=== PATIENT | male | born 1960 | race Caucasian/White ===

== ENCOUNTER 2016-06-14 15:57 | Inpatient (IN) | payer BC, OTHER ==
[2016-06-14] MEDS ORDERED: Sodium Chloride 0.9% 10 ML Syringe FLUSH PRN ×2 (16:04→19:00)
[2016-06-14] MEDS ORDERED: Sodium Chloride 0.9% 2.5 ML Syringe FLUSH PRN ×2 (16:04→19:00)
--- NOTE | 2016-06-14 16:20 | EDM.PDOC ---
ED HPI GENERAL MEDICAL PROBLEM - General Stated Complaint: FALL Time Seen by Provider: 06/14/16 16:06 Source of Information: Reports: Patient History Limitations: Reports: No limitations - History of Present Illness INITIAL COMMENTS - FREE TEXT/NARRATIVE: HISTORY AND PHYSICAL: [56-year-old male slipped on the ice falling straight on to his back] History of Present Illness: [He is complaining of pain on the right ribs The patient does have a strong smell of alcohol Incident occurred about one hour before admission to ER] Review of Systems: As per history of present illness and below otherwise all systems reviewed and negative. Past medical history: As per history of present illness and as reviewed below otherwise noncontributory. Surgical history: As per history of present illness and as reviewed below otherwise noncontributory. Social history: No reported history of drug or alcohol abuse. Family history: As per history of present illness and as reviewed below otherwise noncontributory. Physical exam: Alert and Oriented. Patient walked into the emergency department without difficulty. Grunting from pain. Denies any injury to his head. HEENT: Atraumatic, normocehpalic, pupils reactive, negative for conjunctival pallor or scleral icterus, mucous membranes moist, throat clear, neck supple, nontender, trachea midline. PERRLA. Lungs: Clear to auscultation, breath sounds equal bilaterally, chest tender to palpation mid back (right). Heart: S1S2, regular, negative for clicks, rubs, or JVD. Abdomen: Soft, nondistended, nontender. Negative for masses or hepatossplenmegaly. Negative for costovertebral tenderness. Extremities: Atraumatic, negative for cords or calf pain. He does have pain to the right elbow there is no deformity is half full range of motion radial pulses are intact. Neurovascular unremarkable. Neuro: Awake, alert, oriented. Cranial nerves II through XII unremarkable. Cerebellum unremarkable. Motor and sensory unremarkable throughout. Exam nonfocal. Discussed case with Dr. Heriberto Alonso was agreeable to admission. Discussed with the patient and his date admission for pain control and observation for his respiratory status. Diagnostics: [chest/ ribs xray] Therapeutics: [fentanyl] Impression: [multiple fractured ribs] Hyponatremia Plan: [admission for pain control] Definitive disposition and diagnosis as appropriate pending reevaluation and review of above. Onset: today, sudden Duration: Hour(s): (1) Location: Reports: back, other (rt ribs) Quality: Reports: Stabbing Severity: severe Improves with: Reports: None Worsens with: Reports: Breathing, Movement Associated Symptoms: Denies: confusion Right Sided Ribs Pain Score (Numeric/FACES): 10 - Related Data Allergies Allergy/AdvReac Type Severity Reaction Status Date / Time No Known Allergies Allergy Verified 10/10/14 22:55 Home Meds: Home Meds Lisinopril 10 mg PO DAILY 11/02/13 [History] Clindamycin HCl 300 mg PO QID 10/10/14 [History] amLODIPine [Norvasc] 10 mg PO DAILY 10/10/14 [History] Social & Family History - Tobacco Use Smoking Status *Q: Current Every Day Smoker Years of Tobacco use: 30 - Alcohol Use Days Per Week of Alcohol Use: 2 Number of Drinks Per Day: 4 Total Drinks Per Week: 8 - Recreational Drug Use Recreational Drug Use: No Drug Use in Last 12 Months: No ED ROS GENERAL - Review of Systems Review Of Systems: ROS reveals no pertinent complaints other than HPI. ED EXAM, GENERAL - Physical Exam Exam: See Below (See dictation) Course - Vital Signs Last Recorded V/S: Last Vital Signs Temp 36.0 C 06/14/16 16:00 Pulse 65 06/14/16 17:10 Resp 16 06/14/16 17:10 BP 117/79 06/14/16 17:10 Pulse Ox 95 06/14/16 17:10 - Orders/Labs/Meds Orders: Active Orders 24 hr Category Date Time Status Patient Status [ADT] Stat ADT 06/14/16 17:26 Active RT Aerosol Therapy [RC] ASDIRECTED Care 06/14/16 16:27 Active Ribs 2V w Chest Rt [CR] Stat Exams 06/14/16 16:05 Taken SODIUM,NA [CHEM] Stat Lab 06/14/16 17:40 Received Sodium Chloride 0.9% [Normal Saline] 1,000 ml Med 06/14/16 17:38 Active IV ONETIME Sodium Chloride 0.9% [Normal Saline] 1,000 ml Med 06/14/16 17:40 Active IV ONETIME Sodium Chloride 0.9% [Saline Flush] Med 06/14/16 16:04 Active 10 ml FLUSH ASDIRECTED PRN Sodium Chloride 0.9% [Saline Flush] Med 06/14/16 16:04 Active 2.5 ml FLUSH ASDIRECTED PRN Saline Lock Insert [OM.PC] Stat Oth 06/14/16 16:04 Ordered Medication Orders Sodium Chloride (Normal Saline) 1,000 mls @ 999 mls/hr IV ONETIME ONE Stop: 06/14/16 18:38 Last Admin: 06/14/16 17:42 Dose: 999 mls/hr Sodium Chloride (Normal Saline) 1,000 mls @ 999 mls/hr IV ONETIME ONE Stop: 06/14/16 18:40 Last Admin: 06/14/16 17:42 Dose: 999 mls/hr Sodium Chloride (Saline Flush) 10 ml FLUSH ASDIRECTED PRN PRN Reason: Keep Vein Open Sodium Chloride (Saline Flush) 2.5 ml FLUSH ASDIRECTED PRN PRN Reason: Keep Vein Open Labs: Laboratory Tests 06/14/16 06/14/16 Range/Units 16:16 16:16 WBC 7.52 (4.0-11.0) K/uL RBC 3.95 L (4.50-5.90) M/uL Hgb 12.9 L (13.0-17.0) g/dL Hct 37.6 L (38.0-50.0) % MCV 95.2 (80.0-98.0) fL MCH 32.7 H (27.0-32.0) pg MCHC 34.3 (31.0-37.0) g/dL RDW Std Deviation 46.0 (28.0-62.0) fl RDW Coeff of Linda 13 (11.0-15.0) % Plt Count 298 (150-400) K/uL MPV 8.40 (7.40-12.00) fL Neut % (Auto) 55.1 (48.0-80.0) % Lymph % (Auto) 32.6 (16.0-40.0) % [place] % (Auto) 10.0 (0.0-15.0) % Eos % (Auto) 1.9 (0.0-7.0) % Baso % (Auto) 0.4 (0.0-1.5) % Neut # 4.2 (1.4-5.7) K/uL Lymph # 2.5 H (0.6-2.4) K/uL [place] # 0.8 (0.0-0.8) K/uL Eos # 0.1 (0.0-0.7) K/uL Baso # 0.0 (0.0-0.1) K/uL Nucleated RBC % 0.0 /100WBC Nucleated RBCs # 0 K/uL Sodium 126 L (136-146) mmol/L Potassium 3.5 (3.5-5.1) mmol/L Chloride 96 L (98-110) mmol/L Carbon Dioxide 18 L (21-31) mmol/L BUN 7 (6.0-23.0) mg/dL Creatinine 0.8 (0.6-1.5) mg/dL Est Cr Clr Drug Dosing 119.93 mL/min Estimated GFR (MDRD) > 60.0 ml/min Glucose 99 (60-110) mg/dL Calcium 8.7 L (8.8-10.8) mg/dL Total Bilirubin 0.5 (0.1-1.5) mg/dL AST 31 (5-40) IU/L ALT 19 (8-54) IU/L Alkaline Phosphatase 59 (40-150) Total Protein 7.2 (6.0-8.0) g/dL Albumin 4.0 (3.5-5.0) g/dL Globulin 3.2 (2.0-3.5) g/dL Albumin/Globulin Ratio 1.3 (1.3-2.8) Ethyl Alcohol 194.1 mg/dL Meds: Medications Generic Name Dose Route Start Last Admin Trade Name Freq PRN Reason Stop Dose Admin Sodium Chloride 1,000 mls @ 999 mls/hr 06/14/16 17:38 06/14/16 17:42 Normal Saline IV 06/14/16 18:38 999 mls/hr ONETIME ONE Administration Sodium Chloride 1,000 mls @ 999 mls/hr 06/14/16 17:40 06/14/16 17:42 Normal Saline IV 06/14/16 18:40 999 mls/hr ONETIME ONE Administration Sodium Chloride 10 ml 06/14/16 16:04 Saline Flush FLUSH ASDIRECTED PRN Keep Vein Open Sodium Chloride 2.5 ml 06/14/16 16:04 Saline Flush FLUSH ASDIRECTED PRN Keep Vein Open Discontinued Medications Generic Name Dose Route Start Last Admin Trade Name Patrickq PRN Reason Stop Dose Admin Albuterol/Ipratropium 3 ml 06/14/16 16:27 06/14/16 16:33 Duoneb 3.0-0.5 Mg/3 Ml NEB 06/14/16 16:28 3 ml ONETIME ONE Administration Fentanyl 25 mcg 06/14/16 16:24 06/14/16 17:30 Sublimaze IVPUSH 06/14/16 16:30 25 mcg Q5M PRN Administration Pain Fentanyl 25 mcg 06/14/16 16:24 06/14/16 16:33 Sublimaze IVPUSH 06/14/16 16:25 25 mcg STAT ONE Administration Fentanyl 25 mcg 06/14/16 17:00 Sublimaze IVPUSH 06/14/16 17:06 Q5M PRN Pain Departure - Departure Time of Disposition: 17:52 Disposition: Admitted As Inpatient 66 Condition: good Clinical Impression: Multiple rib fractures involving four or more ribs - My Orders Last 24 Hours: My Active Orders 06/14/16 16:04 Sodium Chloride 0.9% [Saline Flush] 10 ml FLUSH ASDIRECTED PRN Sodium Chloride 0.9% [Saline Flush] 2.5 ml FLUSH ASDIRECTED PRN Saline Lock Insert [OM.PC] Stat 06/14/16 16:05 Ribs 2V w Chest Rt [CR] Stat 06/14/16 17:26 Patient Status [ADT] Stat 06/14/16 17:38 Sodium Chloride 0.9% [Normal Saline] 1,000 ml IV ONETIME 06/14/16 17:40 SODIUM,NA [CHEM] Stat Sodium Chloride 0.9% [Normal Saline] 1,000 ml IV ONETIME - Assessment/Plan Last 24 Hours: My Active Orders 06/14/16 16:04 Sodium Chloride 0.9% [Saline Flush] 10 ml FLUSH ASDIRECTED PRN Sodium Chloride 0.9% [Saline Flush] 2.5 ml FLUSH ASDIRECTED PRN Saline Lock Insert [OM.PC] Stat 06/14/16 16:05 Ribs 2V w Chest Rt [CR] Stat 06/14/16 17:26 Patient Status [ADT] Stat 06/14/16 17:38 Sodium Chloride 0.9% [Normal Saline] 1,000 ml IV ONETIME 06/14/16 17:40 SODIUM,NA [CHEM] Stat Sodium Chloride 0.9% [Normal Saline] 1,000 ml IV ONETIME
[2016-06-14] MEDS ORDERED: fentaNYL 100 MCG/2 ML SDV IVPUSH ONE (16:24)
[2016-06-14] MEDS ORDERED: Albuterol/Ipratropium 3.0-0.5 MG/3 ML Neb Soln NEB ONE (16:27)
[2016-06-14] MEDS ORDERED: fentaNYL 100 MCG/2 ML SDV IVPUSH PRN (17:00)
[2016-06-14 17:06] LABS: CHLORIDE,CL 96 mmol/L (98-110); SODIUM,NA 126 mmol/L (136-146)
[2016-06-14] MEDS: fentaNYL 100 MCG/2 ML SDV IVPUSH PRN ×2 (17:08→17:30)
[2016-06-14] MEDS ORDERED: Sodium Chloride 0.9% 1,000 ML IV ONE ×2 (17:38→17:40)
[2016-06-14] MEDS: Morphine 2 MG/ML Syringe IVPUSH PRN ×2 (19:18→23:43)
[2016-06-14] MEDS ORDERED: Ondansetron 4 MG/2 ML SDV IVPUSH PRN (19:54)
--- NOTE | 2016-06-14 20:13 | PCM.HP ---
H&P History of Present Illness - General Date of Service: 06/14/16 - History of Present Illness Initial Comments - Free Text/Narative: 56 yo male with pmh of hypertension who slipped and fell on the ice today. He landed on his back. He then reported back pain over his right ribs. The pain occurs mainly with movement and talking. He reports having left sided rib fractures in the past which he stated muscle relaxers helped more than percocet. He denies any dizziness or lightheadedness during the fall and now. He reports he has been told he has had low sodium in the past. He reports drinking 4 beers prior to the fall but denies escessive drinking. He admits to drinking on average on beer a day. Patient was evaluated in the ED. He was given 1.5 L of normal saline and fentanyl. Rib x-rays reported rib fractures of the 5th through 9th ribs. Right Sided Ribs Pain Score (Numeric/FACES): 9 - Related Data Allergies/Adverse Reactions: Allergies Allergy/AdvReac Type Severity Reaction Status Date / Time No Known Allergies Allergy Verified 10/10/14 22:55 Home Medications: Home Meds Lisinopril 10 mg PO DAILY 11/02/13 [History] Clindamycin HCl 300 mg PO QID 10/10/14 [History] amLODIPine [Norvasc] 10 mg PO DAILY 10/10/14 [History] Past Medical History Cardiovascular History: Reports: Hypertension Musculoskeletal History: Reports: Fracture Social & Family History - Family History Family Medical History: Noncontributory - Tobacco Use Smoking Status *Q: Former Smoker Years of Tobacco use: 25 Packs/Tins Daily: 1 Used Tobacco, but Quit: Yes Month Tobacco Last Used: april Second Hand Smoke Exposure: No - Caffeine Use Caffeine Use: Reports: Coffee, Soda - Alcohol Use Days Per Week of Alcohol Use: 2 Number of Drinks Per Day: 4 Total Drinks Per Week: 8 Date of Last Drink: 06/14/16 Time of Last Drink: 14:00 - Recreational Drug Use Recreational Drug Use: No Drug Use in Last 12 Months: No H&P Review of Systems - Review of Systems: Review Of Systems: See Below General: Reports: no symptoms HEENT: Reports: no symptoms Pulmonary: Reports: no symptoms Cardiovascular: Reports: no symptoms Gastrointestinal: Reports: No symptoms Genitourinary: Reports: no symptoms Musculoskeletal: Reports: back pain Skin: Reports: no symptoms Psychiatric: Reports: no symptoms Neurological: Reports: no symptoms Hematologic/Lymphatic: Reports: no symptoms Immunologic: Reports: no symptoms Exam - Exam Exam: See Below - Vital Signs Vital Signs: Last Vital Signs Temp 36.4 C 06/14/16 18:22 Pulse 60 06/14/16 18:22 Resp 20 06/14/16 18:22 BP 144/81 H 06/14/16 18:22 Pulse Ox 98 06/14/16 18:22 Weight: 92 kg - Exam General: alert, oriented, cooperative HEENT: Conjunctiva clear Neck: supple, trachea midline. No: JVD Lungs: Clear to auscultation, Normal respiratory effort. No: Crackles, Rales Cardiovascular: regular rate, regular rhythm Abdomen: normal bowel sounds, soft Back Exam: other (pain to palpation over the right lower ribs) Extremities: normal inspection. No: edema Skin: warm, dry, intact Neurological: cranial nerves intact, reflexes equal bilateral - Patient Data Lab Results last 24 hrs: Laboratory Results - last 24 hr 06/14/16 Range/Units 19:16 Troponin I < 0.10 (0.0-0.29) NG/ML Result Diagrams: 06/14/16 16:16 06/14/16 17:40 *Q Meaningful Use (ADM) - VTE *Q VTE Criteria *Q: - Stroke *Q Stroke Criteria *Q: - AMI *Q AMI Criteria *Q: Problem List Initiated/Reviewed/Updated: Yes Orders Last 24hrs: Active Orders 24 hr Category Date Time Status Antiembolic Devices [RC] PER UNIT ROUTINE Care 06/14/16 19:56 Ordered Cardiac Monitoring [RC] CONTINUOUS Care 06/14/16 19:54 Ordered EKG 12 Lead [EKG Documentation Completion] [RC] STAT Care 06/14/16 18:59 Active Incentive Spirometry [RT Incentive Spirometry] [] Care 06/14/16 19:00 Active ASDIRECTED Intake and Output [RC] QSHIFT Care 06/14/16 19:54 Ordered Notify Provider Consults [RC] ASDIRECTED Care 06/14/16 20:02 Ordered Oxygen Therapy [RC] PRN Care 06/14/16 19:54 Ordered Pulse Oximetry [] CONTINUOUS Care 06/14/16 19:54 Ordered Up ad Kerri [RC] ASDIRECTED Care 06/14/16 19:54 Ordered VTE/DVT Education [RC] PER UNIT ROUTINE Care 06/14/16 19:54 Ordered Vital Signs [RC] Q4H Care 06/14/16 19:54 Ordered Consult to Physician [CONS] Routine Cons 06/14/16 20:00 Ordered Regular Diet [DIET] Diet 06/14/16 Dinner Active BASIC METABOLIC PANEL,BMP [CHEM] AM Lab 06/15/16 05:11 Ordered BASIC METABOLIC PANEL,BMP [CHEM] AM Lab 06/16/16 05:11 Ordered BASIC METABOLIC PANEL,BMP [CHEM] AM Lab 06/17/16 05:11 Ordered BASIC METABOLIC PANEL,BMP [CHEM] Routine Lab 06/14/16 23:00 Ordered CBC W/O DIFF,HEMOGRAM [HEME] AM Lab 06/15/16 05:11 Ordered CBC W/O DIFF,HEMOGRAM [HEME] AM Lab 06/16/16 05:11 Ordered CBC W/O DIFF,HEMOGRAM [HEME] AM Lab 06/17/16 05:11 Ordered TROPONIN I [CHEM] Q6H Lab 06/15/16 00:59 Ordered TROPONIN I [CHEM] Q6H Lab 06/15/16 06:59 Ordered Cyclobenzaprine [Flexeril] Med 06/14/16 19:52 Ordered 5 mg PO TID PRN Morphine Med 06/14/16 18:58 Active 2 mg IVPUSH Q2H PRN Ondansetron [Zofran] Med 06/14/16 19:54 Ordered 4 mg IVPUSH Q4H PRN Sodium Chloride 0.9% @ 125 MLS/HR (1000ml) Med 06/14/16 20:00 Ordered Sodium Chloride 0.9% [Normal Saline] 1,000 ml IV ASDIRECTED Sodium Chloride 0.9% [Saline Flush] Med 06/14/16 19:00 Active 10 ml FLUSH ASDIRECTED PRN Sodium Chloride 0.9% [Saline Flush] Med 06/14/16 19:00 Active 2.5 ml FLUSH ASDIRECTED PRN Convert IV to Saline Lock [OM.PC] Routine Oth 06/14/16 19:00 Ordered Sequential Compression Device [OM.PC] Per Unit Routine Oth 06/14/16 19:54 Ordered Resuscitation Status Routine Resus Stat 06/14/16 19:54 Ordered Medication Orders Cyclobenzaprine HCl (Flexeril) 5 mg PO TID PRN PRN Reason: Chest Pain Sodium Chloride (Normal Saline) 1,000 mls @ 125 mls/hr IV ASDIRECTED KIKA Morphine Sulfate (Morphine) 2 mg IVPUSH Q2H PRN PRN Reason: Pain Last Admin: 06/14/16 19:18 Dose: 2 mg Ondansetron HCl (Zofran) 4 mg IVPUSH Q4H PRN PRN Reason: Nausea Sodium Chloride (Saline Flush) 10 ml FLUSH ASDIRECTED PRN PRN Reason: Keep Vein Open Sodium Chloride (Saline Flush) 2.5 ml FLUSH ASDIRECTED PRN PRN Reason: Keep Vein Open Sodium Chloride (Saline Flush) 10 ml FLUSH ASDIRECTED PRN PRN Reason: Keep Vein Open Sodium Chloride (Saline Flush) 2.5 ml FLUSH ASDIRECTED PRN PRN Reason: Keep Vein Open Assessment/Plan Comment:: 56 yo male admitted with multiple rib fractures. Rib fractures. morphine and flexeril for pain control. incouraged incentive spirometer use. I called Dr. Seth for trauma consult. He was informed of chest s -ray results and agreed to see the patient tonight. Per ER provider report patient has heaver alcohol use than patient has told us. For now will monitor on CIWA protocol Hyponatremia: Will give NS IVF and continue to monitor sodium.
[2016-06-14] MEDS ORDERED: Thiamine 200 MG/2 ML MDV IVPUSH SCH (20:15)
[2016-06-14] MEDS ORDERED: LORazepam 2 MG/ML MDV IVPUSH PRN (20:19)
[2016-06-14] MEDS: Sodium Chloride 0.9% 1,000 ML IV SCH (20:51)
[2016-06-14] MEDS: Folic Acid 50 MG/10 ML MDV SUBCUT SCH (20:55)
[2016-06-14] MEDS: Cyclobenzaprine 5 MG Tab PO PRN (20:57)
[2016-06-14] MEDS: Thiamine 100 MG in Sodium Chloride 0.9% 100 ML IV SCH (21:22)
--- NOTE | 2016-06-14 21:27 | PCM.SN ---
- Free Text/Narrative Note: pt seen, chart reviewed, trauma consult; stay in telemetry, repeat cxr for risks of delay ptx; will follow w you; [id number]
--- NOTE | 2016-06-14 22:53 | CONS ---
DATE OF CONSULTATION: 06/14/2016 DATE OF : 1960 PRIMARY CARE PHYSICIAN: None PCP Consult was called. The patient was seen shortly after. CONSULTING QUESTION: Trauma call. HISTORY OF PRESENT ILLNESS: The patient is a 56-year-old gentleman, and fell about 10 hours ago while doing some work in the garage and did not quite understand how the fall could result in rib fracture. The patient was seen in the emergency room and because of the low sodium 128, the patient was admitted to medical service and trauma call and requested to be seen now. The patient denied loss of consciousness and denied shortness of breath. Denied syncope and denied chest pain. PAST MEDICAL HISTORY: Include hypertension. The patient denied diabetes, CVA, or DC. Of note, the patient also had past trauma many years ago and broke left-sided rib. PAST SURGICAL HISTORY: Colonoscopy. ALLERGIES: Please refer to nursing for details. MEDICATIONS: Please refer to nursing for details. REVIEW OF SYSTEMS: Same as history of present illness. FAMILY HISTORY: Noncontributory. 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 HEENT: Normocephalic, atraumatic. Sclerae anicteric. LUNGS: Clear to auscultation. Trachea is midline. No crepitus and very diminished breath sounds on the right side. ABDOMEN: Soft, nondistended. No pulsating, tender midline abdominal structure. PELVIS: Stable. SPINE: Very difficult to get access to as the patient is not cooperating because of the pain. From the limited exam, the spine is nontender and the patient is able to move all his 4 extremity with full range of motion and motor 5+/5+. IMPRESSION: Fall from standing resulting in rib fracture. It is kind of unusual. The patient had rib fracture in the past. The patient will probably benefit from CAT scan of the lung eventually, and the patient probably would benefit to work up on the prostate as both can have sometimes disease causing rib fracture. Other than that, the admission chest x-ray showed no pneumothorax. Before rib fracture, no pneumothorax is okay, but we have the concern about the later pneumothorax. We will request a chest x-ray in the morning. Pain management and incentive spirometer as you are doing. We will follow with you in the morning for the repeat chest x-ray. As always, thank you for the kind referral. SUSIE DE LOS SANTOS /[id number]
[2016-06-14 23:24] LABS: CHLORIDE,CL 100 mmol/L (98-110); SODIUM,NA 128 mmol/L (136-146)
[2016-06-15] MEDS: Cyclobenzaprine 5 MG Tab PO PRN ×2 (05:03→17:37)
[2016-06-15] MEDS: Sodium Chloride 0.9% 1,000 ML IV SCH (05:47)
[2016-06-15] MEDS: Morphine 2 MG/ML Syringe IVPUSH PRN ×2 (06:06→08:10)
[2016-06-15 06:55] LABS: CHLORIDE,CL 102 mmol/L (98-110); SODIUM,NA 130 mmol/L (136-146)
--- NOTE | 2016-06-15 08:02 | PCM.PN ---
- Review of Systems Systems Review Comment:: reports rib pain with movement. - Patient Data Vitals - most recent: Last Vital Signs Temp 37.7 C 06/15/16 03:52 Pulse 63 06/15/16 03:52 Resp 20 06/15/16 03:52 BP 141/86 H 06/15/16 03:52 Pulse Ox 92 L 06/15/16 03:52 Weight - most recent: 92 kg I&O - last 24 hours: Intake & Output 06/14/16 06/15/16 06/15/16 22:59 06:59 14:59 Intake Total 101 1300 Output Total 1300 Balance 101 0 Lab Results last 24 hrs: Laboratory Results - last 24 hr 06/14/16 06/14/16 06/15/16 Range/Units 19:16 23:00 01:24 WBC (4.0-11.0) K/uL RBC (4.50-5.90) M/uL Hgb (13.0-17.0) g/dL Hct (38.0-50.0) % MCV (80.0-98.0) fL MCH (27.0-32.0) pg MCHC (31.0-37.0) g/dL RDW Std Deviation (28.0-62.0) fl RDW Coeff of Linda (11.0-15.0) % Plt Count (150-400) K/uL MPV (7.40-12.00) fL Nucleated RBC % /100WBC Nucleated RBCs # K/uL Sodium 128 L (136-146) mmol/L Potassium 3.9 (3.5-5.1) mmol/L Chloride 100 (98-110) mmol/L Carbon Dioxide 18 L (21-31) mmol/L BUN 7 (6.0-23.0) mg/dL Creatinine 0.7 (0.6-1.5) mg/dL Est Cr Clr Drug Dosing 137.00 mL/min Estimated GFR (MDRD) > 60.0 ml/min Glucose 108 (60-110) mg/dL Calcium 7.9 L (8.8-10.8) mg/dL Magnesium (1.5-2.3) mEq/L Troponin I < 0.10 < 0.10 (0.0-0.29) NG/ML 06/15/16 06/15/16 06/15/16 Range/Units 06:25 06:25 06:25 WBC 7.19 (4.0-11.0) K/uL RBC 3.85 L (4.50-5.90) M/uL Hgb 12.6 L (13.0-17.0) g/dL Hct 36.7 L (38.0-50.0) % MCV 95.3 (80.0-98.0) fL MCH 32.7 H (27.0-32.0) pg MCHC 34.3 (31.0-37.0) g/dL RDW Std Deviation 46.4 (28.0-62.0) fl RDW Coeff of Linda 13 (11.0-15.0) % Plt Count 278 (150-400) K/uL MPV 8.50 (7.40-12.00) fL Nucleated RBC % 0.0 /100WBC Nucleated RBCs # 0 K/uL Sodium 130 L (136-146) mmol/L Potassium 4.5 (3.5-5.1) mmol/L Chloride 102 (98-110) mmol/L Carbon Dioxide 19 L (21-31) mmol/L BUN 8 (6.0-23.0) mg/dL Creatinine 0.7 (0.6-1.5) mg/dL Est Cr Clr Drug Dosing 137.00 mL/min Estimated GFR (MDRD) > 60.0 ml/min Glucose 90 (60-110) mg/dL Calcium 8.5 L (8.8-10.8) mg/dL Magnesium (1.5-2.3) mEq/L Troponin I < 0.10 (0.0-0.29) NG/ML 06/15/16 Range/Units 06:25 WBC (4.0-11.0) K/uL RBC (4.50-5.90) M/uL Hgb (13.0-17.0) g/dL Hct (38.0-50.0) % MCV (80.0-98.0) fL MCH (27.0-32.0) pg MCHC (31.0-37.0) g/dL RDW Std Deviation (28.0-62.0) fl RDW Coeff of Linda (11.0-15.0) % Plt Count (150-400) K/uL MPV (7.40-12.00) fL Nucleated RBC % /100WBC Nucleated RBCs # K/uL Sodium (136-146) mmol/L Potassium (3.5-5.1) mmol/L Chloride (98-110) mmol/L Carbon Dioxide (21-31) mmol/L BUN (6.0-23.0) mg/dL Creatinine (0.6-1.5) mg/dL Est Cr Clr Drug Dosing mL/min Estimated GFR (MDRD) ml/min Glucose (60-110) mg/dL Calcium (8.8-10.8) mg/dL Magnesium 1.8 (1.5-2.3) mEq/L Troponin I (0.0-0.29) NG/ML Med Orders - Current: Current Medications Cyclobenzaprine HCl (Flexeril) 5 mg PO TID PRN PRN Reason: Chest Pain Last Admin: 06/15/16 05:03 Dose: 5 mg Folic Acid (Folic Acid) 1 mg SUBCUT DAILY [facility] Last Admin: 06/14/16 20:55 Dose: 1 mg Sodium Chloride (Normal Saline) 1,000 mls @ 125 mls/hr IV ASDIRECTED [facility]IK[facility] Last Admin: 06/15/16 05:47 Dose: 125 mls/hr Thiamine HCl 100 mg/ Sodium (Chloride) 101 mls @ 202 mls/hr IV DAILY [facility] Last Admin: 06/14/16 21:22 Dose: 202 mls/hr Lorazepam (Ativan) 0 mg IVPUSH Q4H PRN; Protocol PRN Reason: Agitation Morphine Sulfate (Morphine) 2 mg IVPUSH Q2H PRN PRN Reason: Pain Last Admin: 06/15/16 06:06 Dose: 2 mg Ondansetron HCl (Zofran) 4 mg IVPUSH Q4H PRN PRN Reason: Nausea Sodium Chloride (Saline Flush) 10 ml FLUSH ASDIRECTED PRN PRN Reason: Keep Vein Open Sodium Chloride (Saline Flush) 2.5 ml FLUSH ASDIRECTED PRN PRN Reason: Keep Vein Open Sodium Chloride (Saline Flush) 10 ml FLUSH ASDIRECTED PRN PRN Reason: Keep Vein Open Sodium Chloride (Saline Flush) 2.5 ml FLUSH ASDIRECTED PRN PRN Reason: Keep Vein Open Discontinued Medications Albuterol/Ipratropium (Duoneb 3.0-0.5 Mg/3 Ml) 3 ml NEB ONETIME ONE Stop: 06/14/16 16:28 Last Admin: 06/14/16 16:33 Dose: 3 ml Fentanyl (Sublimaze) 25 mcg IVPUSH Q5M PRN PRN Reason: Pain Stop: 06/14/16 16:30 Last Admin: 06/14/16 17:30 Dose: 25 mcg Fentanyl (Sublimaze) 25 mcg IVPUSH STAT ONE Stop: 06/14/16 16:25 Last Admin: 06/14/16 16:33 Dose: 25 mcg Fentanyl (Sublimaze) 25 mcg IVPUSH Q5M PRN PRN Reason: Pain Stop: 06/14/16 17:06 Sodium Chloride (Normal Saline) 1,000 mls @ 999 mls/hr IV ONETIME ONE Stop: 06/14/16 18:38 Last Admin: 06/14/16 17:42 Dose: 999 mls/hr Sodium Chloride (Normal Saline) 1,000 mls @ 999 mls/hr IV ONETIME ONE Stop: 06/14/16 18:40 Last Admin: 06/14/16 17:42 Dose: 999 mls/hr Thiamine HCl (Vitamin B-1) 100 mg IVPUSH DAILY [facility] - Exam General: alert, oriented Lungs: Clear to auscultation, Normal respiratory effort Cardiovascular: regular rate, regular rhythm Abdomen: bowel sounds present, soft, no tenderness, no distension Extremities: no edema - Problem List Review Problem List Initiated/Reviewed/Updated: Yes - My Orders Last 24 Hours: My Active Orders 06/14/16 18:58 Morphine 2 mg IVPUSH Q2H PRN 06/14/16 18:59 EKG 12 Lead [EKG Documentation Completion] [RC] STAT 06/14/16 19:00 Incentive Spirometry [RT Incentive Spirometry] [RC] ASDIRECTED Sodium Chloride 0.9% [Saline Flush] 10 ml FLUSH ASDIRECTED PRN Sodium Chloride 0.9% [Saline Flush] 2.5 ml FLUSH ASDIRECTED PRN Convert IV to Saline Lock [OM.PC] Routine 06/14/16 19:52 Cyclobenzaprine [Flexeril] 5 mg PO TID PRN 06/14/16 19:54 Cardiac Monitoring [RC] CONTINUOUS Intake and Output [RC] Q12H Oxygen Therapy [RC] PRN Pulse Oximetry [RC] CONTINUOUS Telemetry Monitoring [Cardiac Monitoring] [RC] Q8H Up ad Kerri [RC] ASDIRECTED VTE/DVT Education [RC] DAILY Vital Signs [RC] Q4H Ondansetron [Zofran] 4 mg IVPUSH Q4H PRN Sequential Compression Device [OM.PC] Per Unit Routine Resuscitation Status Routine 06/14/16 19:56 Antiembolic Devices [RC] Q12H 06/14/16 20:00 Consult to Physician [CONS] Routine Sodium Chloride 0.9% [Normal Saline] 1,000 ml IV ASDIRECTED 06/14/16 20:02 Notify Provider Consults [RC] ASDIRECTED 06/14/16 20:15 Folic Acid 1 mg SUBCUT DAILY 06/14/16 20:19 LORazepam [Ativan] See Protocol IVPUSH Q4H PRN 06/14/16 20:22 CIWAA Assessment [RC] Q4H 06/14/16 21:15 Thiamine [Vitamin B-1] 100 mg Sodium Chloride 0.9% [Normal Saline] 100 ml IV DAILY 06/14/16 Dinner Regular Diet [DIET] 06/15/16 10:00 BASIC METABOLIC PANEL,BMP [CHEM] Q4H 06/15/16 14:00 BASIC METABOLIC PANEL,BMP [CHEM] Q4H 06/15/16 18:00 BASIC METABOLIC PANEL,BMP [CHEM] Q4H 06/15/16 22:00 BASIC METABOLIC PANEL,BMP [CHEM] Q4H 06/16/16 05:11 BASIC METABOLIC PANEL,BMP [CHEM] AM CBC W/O DIFF,HEMOGRAM [HEME] AM MAGNESIUM [CHEM] AM 06/17/16 05:11 BASIC METABOLIC PANEL,BMP [CHEM] AM CBC W/O DIFF,HEMOGRAM [HEME] AM MAGNESIUM [CHEM] AM - Plan Plan:: 56 yo male admitted with multiple rib fractures. Rib fractures. morphine and flexeril for pain control. incentive spirometer use. Appreciate Dr. Seth's consult. plan on repeating CXR today Per ER provider report patient has heaver alcohol use than patient has told us. For now will monitor on CIWA protocol, currently no signs of withdrawal. Hyponatremia: sodium is 130, Will continue NS IVF and continue to monitor sodium.
[2016-06-15] MEDS ORDERED: Morphine PF 30 MG/30 ML PCA Vial IV SCH (08:15)
[2016-06-15] MEDS: Folic Acid 50 MG/10 ML MDV SUBCUT SCH (08:21)
[2016-06-15] MEDS: Thiamine 100 MG in Sodium Chloride 0.9% 100 ML IV SCH (09:45)
[2016-06-15 10:48] LABS: CHLORIDE,CL 103 mmol/L (98-110); SODIUM,NA 133 mmol/L (136-146)
[2016-06-15] MEDS: Heparin Sodium 5,000 Units/ML Vial SUBCUT SCH ×2 (13:00→20:50)
[2016-06-15] MEDS ORDERED: Sodium Chloride 0.9% 1,000 ML IV SCH (15:00)
[2016-06-15] MEDS ORDERED: Morphine 2 MG/ML Syringe IVPUSH PRN (18:46)
[2016-06-15] MEDS: oxyCODONE 5 MG Tab PO PRN (20:45)
[2016-06-16] MEDS: oxyCODONE 5 MG Tab PO PRN ×2 (00:46→06:02)
[2016-06-16] MEDS ORDERED: guaiFENesin 100 MG/5 ML Soln 10 ML UD Cup PO PRN (01:00)
[2016-06-16] MEDS: Cyclobenzaprine 5 MG Tab PO PRN ×2 (01:39→12:24)
[2016-06-16] MEDS: Heparin Sodium 5,000 Units/ML Vial SUBCUT SCH (05:28)
[2016-06-16 07:13] LABS: CHLORIDE,CL 104 mmol/L (98-110); SODIUM,NA 134 mmol/L (136-146)
[2016-06-16] MEDS: Thiamine 100 MG in Sodium Chloride 0.9% 100 ML IV SCH (08:29)
[2016-06-16] MEDS: Folic Acid 50 MG/10 ML MDV SUBCUT SCH (08:29)
--- NOTE | 2016-06-16 08:33 | PCM.DCSUM1 ---
Discharge Summary - Discharge Data Discharge Date: 06/16/16 Discharge Disposition: Home, Self-Care 01 Condition: Good - Patient Summary/Data Operative Procedure(s) Performed: Colonoscopy w/ cold rectal and descending colon polypectomies Consults: Consultations 06/14/16 20:00 Consult to Physician [CONS] Routine 06/15/16 13:05 PT Evaluation and Treatment [CONS] Routine Hospital Course: Admission diagnosis: Rib Fractures Hyponatremia Hospital course: Patient is a 56 yo male admitted for right rib fractures that he sustained from a fall from standing position due to slipping on ice. He has a reported history of hyponatremia and his sodium on admission was 126. Dr. Seth was consulted. He was given morphine, oxycodone and flexeril for pain control. He was given normal saline and his sodium did rise gradually to 134 prior to discharge. He drank four beers on the day of admission but denies alcohol abuse and patient did not have any signs of withdrawal during his hospital stay. Today he is ambulating hallways and is no longer requiring IV pain medications. He is discharged home with oxycodone 5mg q 6hrs prn #20 tablets and Flexeril 10mg TID prn #30 tablets. - Patient Instructions Diet: Regular Diet as Tolerated - Discharge Plan Prescriptions/Med Rec: Cyclobenzaprine [Flexeril] 10 mg PO TID PRN #30 tablet PRN Reason: rib pain Home Medications: Home Meds Lisinopril 10 mg PO DAILY 11/02/13 [History] amLODIPine [Norvasc] 5 mg PO DAILY 10/10/14 [History] Cyclobenzaprine [Flexeril] 10 mg PO TID PRN #30 tablet 06/16/16 [Rx] oxyCODONE 5 mg PO Q6HR PRN #20 tablet 06/16/16 [Rx] Referrals: PCP,None [Primary Care Provider] - - Patient Data Vitals - Most Recent: Last Vital Signs Temp 37.7 C 06/16/16 04:00 Pulse 59 L 06/16/16 04:00 Resp 20 06/16/16 04:00 BP 165/88 H 06/16/16 04:00 Pulse Ox 93 L 06/16/16 04:00 Weight - Most Recent: 92 kg I&O - Last 24 hours: Intake & Output 06/15/16 06/16/16 06/16/16 21:59 06:59 14:59 Intake Total Output Total Balance Lab Results - Last 24 hrs: Laboratory Results - last 24 hr 06/15/16 06/16/16 06/16/16 Range/Units 10:19 06:10 06:10 WBC 6.48 (4.0-11.0) K/uL RBC 3.84 L (4.50-5.90) M/uL Hgb 12.5 L (13.0-17.0) g/dL Hct 36.9 L (38.0-50.0) % MCV 96.1 (80.0-98.0) fL MCH 32.6 H (27.0-32.0) pg MCHC 33.9 (31.0-37.0) g/dL RDW Std Deviation 48.4 (28.0-62.0) fl RDW Coeff of Linda 14 (11.0-15.0) % Plt Count 291 (150-400) K/uL MPV 8.90 (7.40-12.00) fL Nucleated RBC % 0.0 /100WBC Nucleated RBCs # 0 K/uL Sodium 133 L 134 L (136-146) mmol/L Potassium 4.5 4.1 (3.5-5.1) mmol/L Chloride 103 104 (98-110) mmol/L Carbon Dioxide 22 20 L (21-31) mmol/L BUN 9 9 (6.0-23.0) mg/dL Creatinine 0.7 0.7 (0.6-1.5) mg/dL Est Cr Clr Drug Dosing 137.00 137.00 mL/min Estimated GFR (MDRD) > 60.0 > 60.0 ml/min Glucose 95 90 (60-110) mg/dL Calcium 8.5 L 8.7 L (8.8-10.8) mg/dL Magnesium (1.5-2.3) mEq/L 06/16/16 Range/Units 06:10 WBC (4.0-11.0) K/uL RBC (4.50-5.90) M/uL Hgb (13.0-17.0) g/dL Hct (38.0-50.0) % MCV (80.0-98.0) fL MCH (27.0-32.0) pg MCHC (31.0-37.0) g/dL RDW Std Deviation (28.0-62.0) fl RDW Coeff of Linda (11.0-15.0) % Plt Count (150-400) K/uL MPV (7.40-12.00) fL Nucleated RBC % /100WBC Nucleated RBCs # K/uL Sodium (136-146) mmol/L Potassium (3.5-5.1) mmol/L Chloride (98-110) mmol/L Carbon Dioxide (21-31) mmol/L BUN (6.0-23.0) mg/dL Creatinine (0.6-1.5) mg/dL Est Cr Clr Drug Dosing mL/min Estimated GFR (MDRD) ml/min Glucose (60-110) mg/dL Calcium (8.8-10.8) mg/dL Magnesium 1.8 (1.5-2.3) mEq/L Med Orders - Current: Current Medications Cyclobenzaprine HCl (Flexeril) 10 mg PO TID PRN PRN Reason: Chest Pain Last Admin: 06/16/16 01:39 Dose: 10 mg Folic Acid (Folic Acid) 1 mg SUBCUT DAILY [facility] Last Admin: 06/15/16 08:21 Dose: 1 mg Guaifenesin (Robitussin) 200 mg PO Q6H PRN PRN Reason: Cough Heparin Sodium (Porcine) (Heparin Sodium) 5,000 units SUBCUT Q8H [facility] Last Admin: 06/16/16 05:28 Dose: 5,000 units Thiamine HCl 100 mg/ Sodium (Chloride) 101 mls @ 202 mls/hr IV DAILY [facility] Last Admin: 06/15/16 09:45 Dose: 202 mls/hr Lorazepam (Ativan) 0 mg IVPUSH Q4H PRN; Protocol PRN Reason: Agitation Morphine Sulfate (Morphine) 2 mg IVPUSH Q3H PRN PRN Reason: Pain Ondansetron HCl (Zofran) 4 mg IVPUSH Q4H PRN PRN Reason: Nausea Oxycodone HCl (Oxycodone) 5 mg PO Q4H PRN PRN Reason: Pain Last Admin: 06/16/16 06:02 Dose: 5 mg Sodium Chloride (Saline Flush) 10 ml FLUSH ASDIRECTED PRN PRN Reason: Keep Vein Open Sodium Chloride (Saline Flush) 2.5 ml FLUSH ASDIRECTED PRN PRN Reason: Keep Vein Open Sodium Chloride (Saline Flush) 10 ml FLUSH ASDIRECTED PRN PRN Reason: Keep Vein Open Sodium Chloride (Saline Flush) 2.5 ml FLUSH ASDIRECTED PRN PRN Reason: Keep Vein Open Discontinued Medications Albuterol/Ipratropium (Duoneb 3.0-0.5 Mg/3 Ml) 3 ml NEB ONETIME ONE Stop: 06/14/16 16:28 Last Admin: 06/14/16 16:33 Dose: 3 ml Cyclobenzaprine HCl (Flexeril) 5 mg PO TID PRN PRN Reason: Chest Pain Last Admin: 06/15/16 17:37 Dose: 5 mg Fentanyl (Sublimaze) 25 mcg IVPUSH Q5M PRN PRN Reason: Pain Stop: 06/14/16 16:30 Last Admin: 06/14/16 17:30 Dose: 25 mcg Fentanyl (Sublimaze) 25 mcg IVPUSH STAT ONE Stop: 06/14/16 16:25 Last Admin: 06/14/16 16:33 Dose: 25 mcg Fentanyl (Sublimaze) 25 mcg IVPUSH Q5M PRN PRN Reason: Pain Stop: 06/14/16 17:06 Sodium Chloride (Normal Saline) 1,000 mls @ 999 mls/hr IV ONETIME ONE Stop: 06/14/16 18:38 Last Admin: 06/14/16 17:42 Dose: 999 mls/hr Sodium Chloride (Normal Saline) 1,000 mls @ 999 mls/hr IV ONETIME ONE Stop: 06/14/16 18:40 Last Admin: 06/14/16 17:42 Dose: 999 mls/hr Sodium Chloride (Normal Saline) 1,000 mls @ 125 mls/hr IV ASDIRECTED [facility] Last Admin: 06/15/16 05:47 Dose: 125 mls/hr Sodium Chloride (Normal Saline) 1,000 mls @ 20 mls/hr IV ASDIRECTED [facility] Morphine Sulfate (Morphine) 2 mg IVPUSH Q2H PRN PRN Reason: Pain Last Admin: 06/15/16 08:10 Dose: 2 mg Morphine Sulfate (Morphine Button Puncher 30 Mg In 30 Ml) 30 mg IV ASDIRECTED [facility]IKA PRN Reason: Protocol Last Admin: 06/15/16 08:27 Dose: 30 mg Thiamine HCl (Vitamin B-1) 100 mg IVPUSH DAILY [facility] *Q Meaningful Use (DIS) - VTE *Q VTE Criteria *Q: - Stroke *Q Stroke Criteria *Q: - AMI *Q AMI Criteria *Q:
--- NOTE | 2016-06-16 10:56 | PCM.SURGPN ---
- General Info Date of Service: 06/15/16 Functional Status: Reports: pain controlled - Review of Systems General: Reports: no symptoms Cardiovascular: Reports: no symptoms Gastrointestinal: Reports: No symptoms - Patient Data Vitals - most recent: Last Vital Signs Temp 98.1 F 06/16/16 08:00 Pulse 68 06/16/16 08:00 Resp 16 06/16/16 08:00 BP 171/93 H 06/16/16 08:00 Pulse Ox 93 L 06/16/16 08:00 Weight - most recent: 202 lb 13.204 oz I&O - last 24 hours: Intake & Output 06/15/16 06/16/16 06/16/16 21:59 06:59 14:59 Intake Total Output Total Balance Lab Results last 24 hrs: Laboratory Results - last 24 hr 06/15/16 06/16/16 06/16/16 Range/Units 10:19 06:10 06:10 WBC 6.48 (4.0-11.0) K/uL RBC 3.84 L (4.50-5.90) M/uL Hgb 12.5 L (13.0-17.0) g/dL Hct 36.9 L (38.0-50.0) % MCV 96.1 (80.0-98.0) fL MCH 32.6 H (27.0-32.0) pg MCHC 33.9 (31.0-37.0) g/dL RDW Std Deviation 48.4 (28.0-62.0) fl RDW Coeff of Linda 14 (11.0-15.0) % Plt Count 291 (150-400) K/uL MPV 8.90 (7.40-12.00) fL Nucleated RBC % 0.0 /100WBC Nucleated RBCs # 0 K/uL Sodium 133 L 134 L (136-146) mmol/L Potassium 4.5 4.1 (3.5-5.1) mmol/L Chloride 103 104 (98-110) mmol/L Carbon Dioxide 22 20 L (21-31) mmol/L BUN 9 9 (6.0-23.0) mg/dL Creatinine 0.7 0.7 (0.6-1.5) mg/dL Est Cr Clr Drug Dosing 137.00 137.00 mL/min Estimated GFR (MDRD) > 60.0 > 60.0 ml/min Glucose 95 90 (60-110) mg/dL Calcium 8.5 L 8.7 L (8.8-10.8) mg/dL Magnesium (1.5-2.3) mEq/L 06/16/16 Range/Units 06:10 WBC (4.0-11.0) K/uL RBC (4.50-5.90) M/uL Hgb (13.0-17.0) g/dL Hct (38.0-50.0) % MCV (80.0-98.0) fL MCH (27.0-32.0) pg MCHC (31.0-37.0) g/dL RDW Std Deviation (28.0-62.0) fl RDW Coeff of Linda (11.0-15.0) % Plt Count (150-400) K/uL MPV (7.40-12.00) fL Nucleated RBC % /100WBC Nucleated RBCs # K/uL Sodium (136-146) mmol/L Potassium (3.5-5.1) mmol/L Chloride (98-110) mmol/L Carbon Dioxide (21-31) mmol/L BUN (6.0-23.0) mg/dL Creatinine (0.6-1.5) mg/dL Est Cr Clr Drug Dosing mL/min Estimated GFR (MDRD) ml/min Glucose (60-110) mg/dL Calcium (8.8-10.8) mg/dL Magnesium 1.8 (1.5-2.3) mEq/L Med Orders - Current: Current Medications Cyclobenzaprine HCl (Flexeril) 10 mg PO TID PRN PRN Reason: Chest Pain Last Admin: 06/16/16 01:39 Dose: 10 mg Folic Acid (Folic Acid) 1 mg SUBCUT DAILY [facility] Last Admin: 06/16/16 08:29 Dose: 1 mg Guaifenesin (Robitussin) 200 mg PO Q6H PRN PRN Reason: Cough Heparin Sodium (Porcine) (Heparin Sodium) 5,000 units SUBCUT Q8H [facility] Last Admin: 06/16/16 05:28 Dose: 5,000 units Thiamine HCl 100 mg/ Sodium (Chloride) 101 mls @ 202 mls/hr IV DAILY [facility] Last Admin: 06/16/16 08:29 Dose: 202 mls/hr Lorazepam (Ativan) 0 mg IVPUSH Q4H PRN; Protocol PRN Reason: Agitation Morphine Sulfate (Morphine) 2 mg IVPUSH Q3H PRN PRN Reason: Pain Ondansetron HCl (Zofran) 4 mg IVPUSH Q4H PRN PRN Reason: Nausea Oxycodone HCl (Oxycodone) 5 mg PO Q4H PRN PRN Reason: Pain Last Admin: 06/16/16 06:02 Dose: 5 mg Sodium Chloride (Saline Flush) 10 ml FLUSH ASDIRECTED PRN PRN Reason: Keep Vein Open Sodium Chloride (Saline Flush) 2.5 ml FLUSH ASDIRECTED PRN PRN Reason: Keep Vein Open Sodium Chloride (Saline Flush) 10 ml FLUSH ASDIRECTED PRN PRN Reason: Keep Vein Open Sodium Chloride (Saline Flush) 2.5 ml FLUSH ASDIRECTED PRN PRN Reason: Keep Vein Open Discontinued Medications Albuterol/Ipratropium (Duoneb 3.0-0.5 Mg/3 Ml) 3 ml NEB ONETIME ONE Stop: 06/14/16 16:28 Last Admin: 06/14/16 16:33 Dose: 3 ml Cyclobenzaprine HCl (Flexeril) 5 mg PO TID PRN PRN Reason: Chest Pain Last Admin: 06/15/16 17:37 Dose: 5 mg Fentanyl (Sublimaze) 25 mcg IVPUSH Q5M PRN PRN Reason: Pain Stop: 06/14/16 16:30 Last Admin: 06/14/16 17:30 Dose: 25 mcg Fentanyl (Sublimaze) 25 mcg IVPUSH STAT ONE Stop: 06/14/16 16:25 Last Admin: 06/14/16 16:33 Dose: 25 mcg Fentanyl (Sublimaze) 25 mcg IVPUSH Q5M PRN PRN Reason: Pain Stop: 06/14/16 17:06 Sodium Chloride (Normal Saline) 1,000 mls @ 999 mls/hr IV ONETIME ONE Stop: 06/14/16 18:38 Last Admin: 06/14/16 17:42 Dose: 999 mls/hr Sodium Chloride (Normal Saline) 1,000 mls @ 999 mls/hr IV ONETIME ONE Stop: 06/14/16 18:40 Last Admin: 06/14/16 17:42 Dose: 999 mls/hr Sodium Chloride (Normal Saline) 1,000 mls @ 125 mls/hr IV ASDIRECTED [facility] Last Admin: 06/15/16 05:47 Dose: 125 mls/hr Sodium Chloride (Normal Saline) 1,000 mls @ 20 mls/hr IV ASDIRECTED [facility] Morphine Sulfate (Morphine) 2 mg IVPUSH Q2H PRN PRN Reason: Pain Last Admin: 06/15/16 08:10 Dose: 2 mg Morphine Sulfate (Morphine Past Due Accounts Clerk 30 Mg In 30 Ml) 30 mg IV ASDIRECTED [facility] PRN Reason: Protocol Last Admin: 06/15/16 08:27 Dose: 30 mg Thiamine HCl (Vitamin B-1) 100 mg IVPUSH DAILY [facility] - Exam General: alert, oriented Lungs: Clear to auscultation Abdomen: soft, no tenderness, no distension - Problem List Review Problem List Initiated/Reviewed/Updated: Yes - My Orders Last 24 Hours: Active Orders 24 hr Category Date Time Status Ready for Discharge [RC] PER UNIT ROUTINE Care 06/16/16 08:23 Active Housekeeping Aide Discontinue [Cardiac Monitoring Care 06/16/16 09:19 Active Discontinue] [RC] Click To Edit PT Evaluation and Treatment [CONS] Routine Cons 06/15/16 13:05 Active BASIC METABOLIC PANEL,BMP [CHEM] AM Lab 06/17/16 05:11 Ordered CBC W/O DIFF,HEMOGRAM [HEME] AM Lab 06/17/16 05:11 Ordered MAGNESIUM [CHEM] AM Lab 06/17/16 05:11 Ordered Cyclobenzaprine [Flexeril] Med 06/16/16 01:02 Active 10 mg PO TID PRN Heparin Sodium Med 06/15/16 13:00 Active 5,000 units SUBCUT Q8H Morphine Med 06/15/16 18:46 Active 2 mg IVPUSH Q3H PRN guaiFENesin [Robitussin] Med 06/16/16 01:00 Active 200 mg PO Q6H PRN oxyCODONE Med 06/15/16 18:48 Active 5 mg PO Q4H PRN Medication Orders Cyclobenzaprine HCl (Flexeril) 10 mg PO TID PRN PRN Reason: Chest Pain Last Admin: 06/16/16 01:39 Dose: 10 mg Folic Acid (Folic Acid) 1 mg SUBCUT DAILY [facility] Last Admin: 06/16/16 08:29 Dose: 1 mg Admin: 06/15/16 08:21 Dose: 1 mg Admin: 06/14/16 20:55 Dose: 1 mg Guaifenesin (Robitussin) 200 mg PO Q6H PRN PRN Reason: Cough Heparin Sodium (Porcine) (Heparin Sodium) 5,000 units SUBCUT Q8H [facility] Last Admin: 06/16/16 05:28 Dose: 5,000 units Admin: 06/15/16 20:50 Dose: 5,000 units Admin: 06/15/16 13:00 Dose: 5,000 units Thiamine HCl 100 mg/ Sodium (Chloride) 101 mls @ 202 mls/hr IV DAILY [facility] Last Admin: 06/16/16 08:29 Dose: 202 mls/hr Infusion: 06/15/16 10:15 Dose: 202 mls/hr Admin: 06/15/16 09:45 Dose: 202 mls/hr Infusion: 06/14/16 21:52 Dose: 202 mls/hr Admin: 06/14/16 21:22 Dose: 202 mls/hr Lorazepam (Ativan) 0 mg IVPUSH Q4H PRN; Protocol PRN Reason: Agitation Morphine Sulfate (Morphine) 2 mg IVPUSH Q3H PRN PRN Reason: Pain Ondansetron HCl (Zofran) 4 mg IVPUSH Q4H PRN PRN Reason: Nausea Oxycodone HCl (Oxycodone) 5 mg PO Q4H PRN PRN Reason: Pain Last Admin: 06/16/16 06:02 Dose: 5 mg Admin: 06/16/16 00:46 Dose: 5 mg Admin: 06/15/16 20:45 Dose: 5 mg Sodium Chloride (Saline Flush) 10 ml FLUSH ASDIRECTED PRN PRN Reason: Keep Vein Open Sodium Chloride (Saline Flush) 2.5 ml FLUSH ASDIRECTED PRN PRN Reason: Keep Vein Open Sodium Chloride (Saline Flush) 10 ml FLUSH ASDIRECTED PRN PRN Reason: Keep Vein Open Sodium Chloride (Saline Flush) 2.5 ml FLUSH ASDIRECTED PRN PRN Reason: Keep Vein Open - Assessment Assessment (Free Text/Narrative):: doing well; pain in good control; repeat CXR, no PTX; continue pain management; increase mobility, and advance diet as you are doing - Plan Plan (Free Text/Narrative):: doing well; pain in good control; repeat CXR, no PTX; continue pain management; increase mobility, and advance diet as you are doing
--- NOTE | 2016-06-16 10:58 | PCM.SURGPN ---
- General Info Date of Service: 06/16/16 Functional Status: Reports: pain controlled - Review of Systems HEENT: Reports: no symptoms Pulmonary: Reports: no symptoms Cardiovascular: Reports: no symptoms Gastrointestinal: Reports: No symptoms - Patient Data Vitals - most recent: Last Vital Signs Temp 98.1 F 06/16/16 08:00 Pulse 68 06/16/16 08:00 Resp 16 06/16/16 08:00 BP 171/93 H 06/16/16 08:00 Pulse Ox 93 L 06/16/16 08:00 Weight - most recent: 202 lb 13.204 oz I&O - last 24 hours: Intake & Output 06/15/16 06/16/16 06/16/16 21:59 06:59 14:59 Intake Total Output Total Balance Lab Results last 24 hrs: Laboratory Results - last 24 hr 06/15/16 06/16/16 06/16/16 Range/Units 10:19 06:10 06:10 WBC 6.48 (4.0-11.0) K/uL RBC 3.84 L (4.50-5.90) M/uL Hgb 12.5 L (13.0-17.0) g/dL Hct 36.9 L (38.0-50.0) % MCV 96.1 (80.0-98.0) fL MCH 32.6 H (27.0-32.0) pg MCHC 33.9 (31.0-37.0) g/dL RDW Std Deviation 48.4 (28.0-62.0) fl RDW Coeff of Linda 14 (11.0-15.0) % Plt Count 291 (150-400) K/uL MPV 8.90 (7.40-12.00) fL Nucleated RBC % 0.0 /100WBC Nucleated RBCs # 0 K/uL Sodium 133 L 134 L (136-146) mmol/L Potassium 4.5 4.1 (3.5-5.1) mmol/L Chloride 103 104 (98-110) mmol/L Carbon Dioxide 22 20 L (21-31) mmol/L BUN 9 9 (6.0-23.0) mg/dL Creatinine 0.7 0.7 (0.6-1.5) mg/dL Est Cr Clr Drug Dosing 137.00 137.00 mL/min Estimated GFR (MDRD) > 60.0 > 60.0 ml/min Glucose 95 90 (60-110) mg/dL Calcium 8.5 L 8.7 L (8.8-10.8) mg/dL Magnesium (1.5-2.3) mEq/L 06/16/16 Range/Units 06:10 WBC (4.0-11.0) K/uL RBC (4.50-5.90) M/uL Hgb (13.0-17.0) g/dL Hct (38.0-50.0) % MCV (80.0-98.0) fL MCH (27.0-32.0) pg MCHC (31.0-37.0) g/dL RDW Std Deviation (28.0-62.0) fl RDW Coeff of Linda (11.0-15.0) % Plt Count (150-400) K/uL MPV (7.40-12.00) fL Nucleated RBC % /100WBC Nucleated RBCs # K/uL Sodium (136-146) mmol/L Potassium (3.5-5.1) mmol/L Chloride (98-110) mmol/L Carbon Dioxide (21-31) mmol/L BUN (6.0-23.0) mg/dL Creatinine (0.6-1.5) mg/dL Est Cr Clr Drug Dosing mL/min Estimated GFR (MDRD) ml/min Glucose (60-110) mg/dL Calcium (8.8-10.8) mg/dL Magnesium 1.8 (1.5-2.3) mEq/L Med Orders - Current: Current Medications Cyclobenzaprine HCl (Flexeril) 10 mg PO TID PRN PRN Reason: Chest Pain Last Admin: 06/16/16 01:39 Dose: 10 mg Folic Acid (Folic Acid) 1 mg SUBCUT DAILY [facility] Last Admin: 06/16/16 08:29 Dose: 1 mg Guaifenesin (Robitussin) 200 mg PO Q6H PRN PRN Reason: Cough Heparin Sodium (Porcine) (Heparin Sodium) 5,000 units SUBCUT Q8H [facility] Last Admin: 06/16/16 05:28 Dose: 5,000 units Thiamine HCl 100 mg/ Sodium (Chloride) 101 mls @ 202 mls/hr IV DAILY [facility] Last Admin: 06/16/16 08:29 Dose: 202 mls/hr Lorazepam (Ativan) 0 mg IVPUSH Q4H PRN; Protocol PRN Reason: Agitation Morphine Sulfate (Morphine) 2 mg IVPUSH Q3H PRN PRN Reason: Pain Ondansetron HCl (Zofran) 4 mg IVPUSH Q4H PRN PRN Reason: Nausea Oxycodone HCl (Oxycodone) 5 mg PO Q4H PRN PRN Reason: Pain Last Admin: 06/16/16 06:02 Dose: 5 mg Sodium Chloride (Saline Flush) 10 ml FLUSH ASDIRECTED PRN PRN Reason: Keep Vein Open Sodium Chloride (Saline Flush) 2.5 ml FLUSH ASDIRECTED PRN PRN Reason: Keep Vein Open Sodium Chloride (Saline Flush) 10 ml FLUSH ASDIRECTED PRN PRN Reason: Keep Vein Open Sodium Chloride (Saline Flush) 2.5 ml FLUSH ASDIRECTED PRN PRN Reason: Keep Vein Open Discontinued Medications Albuterol/Ipratropium (Duoneb 3.0-0.5 Mg/3 Ml) 3 ml NEB ONETIME ONE Stop: 06/14/16 16:28 Last Admin: 06/14/16 16:33 Dose: 3 ml Cyclobenzaprine HCl (Flexeril) 5 mg PO TID PRN PRN Reason: Chest Pain Last Admin: 06/15/16 17:37 Dose: 5 mg Fentanyl (Sublimaze) 25 mcg IVPUSH Q5M PRN PRN Reason: Pain Stop: 06/14/16 16:30 Last Admin: 06/14/16 17:30 Dose: 25 mcg Fentanyl (Sublimaze) 25 mcg IVPUSH STAT ONE Stop: 06/14/16 16:25 Last Admin: 06/14/16 16:33 Dose: 25 mcg Fentanyl (Sublimaze) 25 mcg IVPUSH Q5M PRN PRN Reason: Pain Stop: 06/14/16 17:06 Sodium Chloride (Normal Saline) 1,000 mls @ 999 mls/hr IV ONETIME ONE Stop: 06/14/16 18:38 Last Admin: 06/14/16 17:42 Dose: 999 mls/hr Sodium Chloride (Normal Saline) 1,000 mls @ 999 mls/hr IV ONETIME ONE Stop: 06/14/16 18:40 Last Admin: 06/14/16 17:42 Dose: 999 mls/hr Sodium Chloride (Normal Saline) 1,000 mls @ 125 mls/hr IV ASDIRECTED KIKA Last Admin: 06/15/16 05:47 Dose: 125 mls/hr Sodium Chloride (Normal Saline) 1,000 mls @ 20 mls/hr IV ASDIRECTED [facility] Morphine Sulfate (Morphine) 2 mg IVPUSH Q2H PRN PRN Reason: Pain Last Admin: 06/15/16 08:10 Dose: 2 mg Morphine Sulfate (Morphine Process Camera Operator 30 Mg In 30 Ml) 30 mg IV ASDIRECTED KIKA PRN Reason: Protocol Last Admin: 06/15/16 08:27 Dose: 30 mg Thiamine HCl (Vitamin B-1) 100 mg IVPUSH DAILY KIKA - Exam General: alert, oriented Lungs: Normal respiratory effort Abdomen: soft, no tenderness, no distension - Problem List Review Problem List Initiated/Reviewed/Updated: Yes - My Orders Last 24 Hours: Active Orders 24 hr Category Date Time Status Ready for Discharge [RC] PER UNIT ROUTINE Care 06/16/16 08:23 Active 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 [Cardiac Monitoring Care 06/16/16 09:19 Active Discontinue] [RC] Click To Edit PT Evaluation and Treatment [CONS] Routine Cons 06/15/16 13:05 Active BASIC METABOLIC PANEL,BMP [CHEM] AM Lab 06/17/16 05:11 Ordered CBC W/O DIFF,HEMOGRAM [HEME] AM Lab 06/17/16 05:11 Ordered MAGNESIUM [CHEM] AM Lab 06/17/16 05:11 Ordered Cyclobenzaprine [Flexeril] Med 06/16/16 01:02 Active 10 mg PO TID PRN Heparin Sodium Med 06/15/16 13:00 Active 5,000 units SUBCUT Q8H Morphine Med 06/15/16 18:46 Active 2 mg IVPUSH Q3H PRN guaiFENesin [Robitussin] Med 06/16/16 01:00 Active 200 mg PO Q6H PRN oxyCODONE Med 06/15/16 18:48 Active 5 mg PO Q4H PRN Medication Orders Cyclobenzaprine HCl (Flexeril) 10 mg PO TID PRN PRN Reason: Chest Pain Last Admin: 06/16/16 01:39 Dose: 10 mg Folic Acid (Folic Acid) 1 mg SUBCUT DAILY [facility] Last Admin: 06/16/16 08:29 Dose: 1 mg Admin: 06/15/16 08:21 Dose: 1 mg Admin: 06/14/16 20:55 Dose: 1 mg Guaifenesin (Robitussin) 200 mg PO Q6H PRN PRN Reason: Cough Heparin Sodium (Porcine) (Heparin Sodium) 5,000 units SUBCUT Q8H [facility] Last Admin: 06/16/16 05:28 Dose: 5,000 units Admin: 06/15/16 20:50 Dose: 5,000 units Admin: 06/15/16 13:00 Dose: 5,000 units Thiamine HCl 100 mg/ Sodium (Chloride) 101 mls @ 202 mls/hr IV DAILY [facility] Last Admin: 06/16/16 08:29 Dose: 202 mls/hr Infusion: 06/15/16 10:15 Dose: 202 mls/hr Admin: 06/15/16 09:45 Dose: 202 mls/hr Infusion: 06/14/16 21:52 Dose: 202 mls/hr Admin: 06/14/16 21:22 Dose: 202 mls/hr Lorazepam (Ativan) 0 mg IVPUSH Q4H PRN; Protocol PRN Reason: Agitation Morphine Sulfate (Morphine) 2 mg IVPUSH Q3H PRN PRN Reason: Pain Ondansetron HCl (Zofran) 4 mg IVPUSH Q4H PRN PRN Reason: Nausea Oxycodone HCl (Oxycodone) 5 mg PO Q4H PRN PRN Reason: Pain Last Admin: 06/16/16 06:02 Dose: 5 mg Admin: 06/16/16 00:46 Dose: 5 mg Admin: 06/15/16 20:45 Dose: 5 mg Sodium Chloride (Saline Flush) 10 ml FLUSH ASDIRECTED PRN PRN Reason: Keep Vein Open Sodium Chloride (Saline Flush) 2.5 ml FLUSH ASDIRECTED PRN PRN Reason: Keep Vein Open Sodium Chloride (Saline Flush) 10 ml FLUSH ASDIRECTED PRN PRN Reason: Keep Vein Open Sodium Chloride (Saline Flush) 2.5 ml FLUSH ASDIRECTED PRN PRN Reason: Keep Vein Open - Assessment Assessment (Free Text/Narrative):: doing well, pain better controlled; sound sleeping; agree with discharge planning; fu w me 1 - 2 wks - Plan Plan (Free Text/Narrative):: doing well, pain better controlled; sound sleeping; agree with discharge planning; fu w me 1 - 2 wks
[2016-06-16 12:37] VITALS: BP 175/98
--- NOTE | 2016-06-17 18:47 | CR ---
EXAM DATE: 06/14/16 PATIENT'S AGE: 56 Patient: JEREMY CHAPIN Facility: [place], [place] Site . Site : 1960 Study: XRay Chest w/ribs [id number]/10/2017 5:12:00 PM Ordering Physician: Doctor Rdz Final Report: HISTORY: Right-sided rib pain. FINDINGS: Two PA chest and 4 views of the right ribs are compared with 16 February 2015. The cardiac silhouette is normal. Pulmonary vasculature is free of cephalization. There is linear density seen at the right base. This multiple old left-sided rib fractures present. There are fractures of the right posterolateral 5th through 9th ribs. No pneumothorax is seen. Peridiscal spurring is seen within the spine. IMPRESSION: 1. Linear atelectasis at right base. 2. Multiple old left-sided rib fractures. 3. Fractures of the posterolateral right 5th through 9th ribs without pneumothorax. Dictated by Demi Lipscomb MD @ 06/14/2016 6:11:12 PM Dictated by: Demi Lipscomb MD @ 06/14/2016 18:11:33 (Electronic Signature) Report Signed by Proxy and Original Signed Document filed in the Medical Record. [facility]
--- NOTE | 2016-06-17 20:00 | CR ---
EXAM DATE: 06/14/16 PATIENT'S AGE: 56 Patient: LUIS ENRIQUE CHAPIN Facility: [place], [place] Site Site : 1960 Study: XRay Chest [id number]/11/2017 9:25:03 AM Ordering Physician: TONY VELIZ Final Report: INDICATION: Follow up on risk of delayed pneumothorax. Technique: Upright AP and lateral projections of the chest. Comparison: Chest and right rib x-rays of 06/14/2016. Findings: Shallow inspiration with crowded markings in the bases and relatively greater opacity in the medial right base suggesting atelectasis or pneumonia. No pneumothorax. Heart size and pulmonary vasculature within normal limits. Mild right diaphragmatic elevation. Impression: 1. Negative for pneumothorax. 2. Shallow inspiration with crowded markings in relatively greater opacity in the medial right base due to atelectasis and/or pneumonia. 3. Mild right diaphragmatic elevation. Dictated by Tom Patrick MD @ Jun 15 2016 9:26AM (Electronic Signature) Report Signed by Proxy and Original Signed Document filed in the Medical Record. [facility]
== END 2016-06-16 12:45 | disposition home or self-care (01) | DRG 184 ==
LOC: MW.ED 15:57 → MW.MS 17:45
PROVIDERS: ADMIT Internal Medicine; ATTEND Internal Medicine
PROC: HZ2ZZZZ Detoxification Services for Substance Abuse Treatment (ICD-10-PCS; principal; 2016-06-14)
DX: S22.41XA Multiple fractures of ribs, right side, initial encounter for closed fracture (principal); E87.1 Hypo-osmolality and hyponatremia; W00.0XXA Fall on same level due to ice and snow, initial encounter; F10.129 Alcohol abuse with intoxication, unspecified; Y90.6 Blood alcohol level of 120-199 mg/100 ml; I10 Essential (primary) hypertension; Z87.891 Personal history of nicotine dependence
CPT/HCPCS: 36415; 71020; 71020-26; 71101-26-RT; 71101-RT; 80048; 80053; 83735; 84295; 84484; 85025; 85027; 93005; 94664; 96361; 96374; 96376; 97161-GP; 99285; 99285-25; A9270-GY; G0480; J1644; J2270; J2274; J3010; J3411; J7030; J7040

== ENCOUNTER → 2016-06-26 | Outpatient (CLI) | payer BC, OTHER ==
[2016-06-26 17:23] LABS: CHLORIDE,CL 100 mmol/L (98-110); SODIUM,NA 133 mmol/L (136-146)
--- NOTE | 2016-06-27 13:20 | CR ---
EXAM DATE: 06/26/16 PATIENT'S AGE: 56 Patient: JEREMY CHAPIN Facility: [place], [place] Site . Site : 1960 Study: XRay Chest [id number]/22/2017 5:00:03 PM Ordering Physician: Leonid Dela Cruz Final Report: INDICATION: Essential hypertension, rib fracture TECHNIQUE: Chest 2 views. COMPARISON: June 15, 2016 FINDINGS: Stable cardiomediastinal silhouette. Multiple right rib fractures were better demonstrated on the rib radiographs from June 14, 2016. No pneumothorax. No consolidation or effusion. Remote left-sided rib fractures also noted. IMPRESSION: Right-sided rib fractures without pneumothorax or effusion. Dictated by Anne Navas MD @ Jun 27 2016 12:34AM (Electronic Signature) Report Signed by Proxy and Original Signed Document filed in the Medical Record. [facility]
== END | disposition home or self-care (01) ==
LOC: MW.CHIM 16:41
PROVIDERS: ATTEND Internal Medicine
DX: I10 Essential (primary) hypertension (principal); S22.31XA Fracture of one rib, right side, initial encounter for closed fracture
CPT/HCPCS: 36415; 71020; 71020-26; 80048

== ENCOUNTER → 2016-07-08 | Outpatient (CLI) | payer BC, OTHER ==
--- NOTE | 2016-07-08 17:18 | CT ---
EXAMINATION: CT chest without contrast HISTORY: Nicotine dependence COMPARISON: Chest radiograph dated 06/26/2016, CT neck dated 10/09/2014. TECHNIQUE: Axial CT images obtained through the chest without contrast. Coronal and sagittal reconst ructions obtained. FINDINGS: Mild pulmonary emphysema. There is a faint 1.2 cm groundglass opacity within the right ape x which is new since 10/09/2014. There is a tiny 4 mm nodule within the inferior right upper lobe, as noted on image 56 of series 202. There is a tiny intrafissural nodule within the right minor fissure . There is a 4 mm nodule within the right lower lobe as noted on image 82 of series 22. Right basila r atelectasis is noted. No pleural effusion or pneumothorax. The heart is normal in size without a p ericardial effusion. Coronary artery calcifications are present. The thoracic aorta is normal in esteban iber. Nonpathologically enlarged mediastinal and hilar lymph nodes are noted. The central airways ar e clear. The visualized images of the upper abdomen appear normal. Multiple nondisplaced healing right-sided rib fractures are noted. Old left-sided rib fractures are present. IMPRESSION: 1. Multiple healing right-sided rib fractures are noted. 2. There is a 1.2 cm area of groundglass within the right apex, short-term 3 month follow-up may be beneficial. 3. Multiple right-sided pulmonary nodules also noted measuring up to 4 mm.
== END ==
LOC: MW.DI 13:53
PROVIDERS: ATTEND Internal Medicine
DX: F17.200 Nicotine dependence, unspecified, uncomplicated (principal); S22.41XD Multiple fractures of ribs, right side, subsequent encounter for fracture with routine healing; R91.8 Other nonspecific abnormal finding of lung field
CPT/HCPCS: 71250; 71250-26

== ENCOUNTER 2019-04-14 07:55 | Emergency (ER) | payer OTHER ==
[2019-04-14 08:11] VITALS: BP 158/91
[2019-04-14] MEDS ORDERED: Tetracaine HCl/PF 0.5% 4 ML Bottle EYERT ONE (08:40)
--- NOTE | 2019-04-14 08:42 | EDM.PDOC ---
ED [facility] GENERAL MEDICAL PROBLEM - General Chief Complaint: Skin Complaint Stated Complaint: RASH Time Seen by Provider: 04/14/19 08:41 Source of Information: Reports: Patient History Limitations: Reports: No Limitations - History of Present Illness INITIAL COMMENTS - FREE TEXT/NARRATIVE: Is a 59-year-old male with a chief complaint of rash to the face. Patient states the rash started yesterday and is located on the right side of the forehead. Patient reports burning sensation to the face. Patient states the rash is not itchy. Patient denies any prior similar symptoms. Patient denies any new exposures. Patient denies any blurriness of his vision, itchiness of his eye, discomfort in the eye. Patient is otherwise been well and not complaining of any fevers, chills, any other complaints. In addition to that documented in the HPI above, the additional ROS was obtained : Constitutional: Denies fevers or chills Eyes: Denies vision changes ENMT: Denies sore throat CV: Denies chest pain Resp: Denies SOB GI: Denies vomiting or diarrhea : Denies painful urination MSK: Denies recent trauma Skin: HPI Neuro: Denies new numbness or tingling or weakness Endocrine: Denies unexpected weight loss Heme: Denies bleeding disorders I have reviewed the triage vital signs Const: Well nourished, well developed, appears stated age Eyes: PERRL, no conjunctival injection. Fluorescein stain of the right eye is within normal limits. HENT: NCAT, Neck supple without meningismus CV: RRR, Warm, well-perfused extremities RESP: CTAB, Unlabored respiratory effort GI: soft, non-tender, non-distended, no masses MSK: No gross deformities appreciated Skin: Vesicular type rash to the V1 distribution of the right side of his face. Neuro: Alert, community relations manager II-XII grossly intact. Sensation and motor function of extremities grossly intact. Psych: Appropriate mood and affect Assessment and plan Patient is a 59-year-old male presenting with herpes zoster infection. Patient has no ocular involvement. Given onset of symptoms less than 72 hours, patient will be started on Valtrex for relief. Patient given strict return precautions for ocular involvement. Patient instructed to follow-up with family medicine or primary care provider in the next 24 to 48 hours. Patient instructed on Tylenol Motrin for pain control. There is no evidence of superimposed cellulitis at this time. forehead Pain Score (Numeric/FACES): 10 - Related Data Allergies Allergy/AdvReac Type Severity Reaction Status Date / Time No Known Allergies Allergy Verified 10/10/14 22:55 Home Meds: Home Meds Lisinopril 10 mg PO DAILY 11/02/13 [History] amLODIPine [Norvasc] 5 mg PO DAILY 10/10/14 [History] FLUoxetine HCl [Fluoxetine] 10 mg PO DAILY 04/14/19 [History] Ibuprofen [Motrin] 600 mg PO Q8H #30 tab 04/14/19 [Rx] valACYclovir [Valtrex] 1,000 mg PO TID 7 Days #21 tablet 04/14/19 [Rx] Past Medical History Cardiovascular History: Reports: Hypertension Musculoskeletal History: Reports: Fracture - Infectious Disease History Infectious Disease History: Reports: Chicken Pox Social & Family History - Family History Family Medical History: Noncontributory - Tobacco Use Smoking Status *Q: Light Tobacco Smoker Years of Tobacco use: 1 Packs/Tins Daily: 0.1 - Caffeine Use Caffeine Use: Reports: Coffee, Soda - Recreational Drug Use Recreational Drug Use: No ED ROS GENERAL - Review of Systems Review Of Systems: See Below ED EXAM, SKIN/RASH Exam: See Below Course - Vital Signs Last Recorded V/S: Last Vital Signs Temp 36.2 C 04/14/19 08:09 Pulse 73 04/14/19 09:28 Resp 18 04/14/19 08:09 BP 158/91 H 04/14/19 08:09 Pulse Ox 99 04/14/19 09:28 - Orders/Labs/Meds Meds: Medications Discontinued Medications Generic Name Dose Route Start Last Admin Trade Name Kimber PRN Reason Stop Dose Admin Tetracaine HCl 1 ml 04/14/19 08:40 04/14/19 09:25 Tetracaine 0.5% Steri-Unit Ann EYERT 04/14/19 08:41 1 ml ASDIRECTED ONE Administration Departure - Departure Time of Disposition: 10:00 Disposition: Home, Self-Care 01 Clinical Impression: Shingles - Discharge Information Prescriptions: Ibuprofen [Motrin] 600 mg PO Q8H #30 tab valACYclovir [Valtrex] 1,000 mg PO TID 7 Days #21 tablet Instructions: Shingles, [id number] Referrals: Jose De Jesus Jaquez MD [Primary Care Provider] - Forms: ED Department Discharge Additional Instructions: The following information is given to patients seen in the emergency department who are being discharged to home. This information is to outline your options for follow-up care. We provide all patients seen in our emergency department with a follow-up referral. The need for follow-up, as well as the timing and circumstances, are variable depending upon the specifics of your emergency department visit. If you don't have a primary care physician on staff, we will provide you with a referral. We always advise you to contact your personal physician following an emergency department visit to inform them of the circumstance of the visit and for follow-up with them and/or the need for any referrals to a consulting specialist. The emergency department will also refer you to a specialist when appropriate. This referral assures that you have the opportunity for follow-up care with a specialist. All of these measure are taken in an effort to provide you with optimal care, which includes your follow-up. Under all circumstances we always encourage you to contact your private physician who remains a resource for coordinating your care. When calling for follow-up care, please make the office aware that this follow-up is from your recent emergency room visit. If for any reason you are refused follow-up, please contact the [facility] Emergency Department at and asked to speak to the emergency department charge nurse. Please return immediately to the emergency department for any burning in her eye , vision changes, eye discharge. Sepsis Event Note - Evaluation Sepsis Screening Result: No Definite Risk - Focused Exam Vital Signs: Vital Signs Temp Pulse Resp BP Pulse Ox 04/14/19 09:28 73 99 04/14/19 08:09 36.2 C 74 18 158/91 H 99 Date Exam was Performed: 04/14/19 Time Exam was Performed: 16:04
[2019-04-14 09:29] VITALS: PULSE 73
== END 2019-04-14 09:28 | disposition home or self-care (01) ==
LOC: MW.ED 07:55
DX: B02.9 Zoster without complications (principal); I10 Essential (primary) hypertension; F17.210 Nicotine dependence, cigarettes, uncomplicated; Z79.899 Other long term (current) drug therapy
CPT/HCPCS: 99283

== ENCOUNTER 2020-04-29 13:33 | Emergency (ER) | payer OTHER ==
[2020-04-29] MEDS ORDERED: ceFAZolin 1 GM in Premix Bag 1 BAG IV ONE (14:00)
[2020-04-29] MEDS ORDERED: Lactated Ringers 1,000 ML IV SCH (14:00)
[2020-04-29] MEDS ORDERED: Bupivacaine 0.5% 10 ML SDV INJECT ONE (14:01)
[2020-04-29] MEDS ORDERED: Ondansetron 4 MG/2 ML SDV IVPUSH ONE (14:08)
[2020-04-29] MEDS ORDERED: Morphine 4 MG/ML Syringe IVPUSH ONE (14:08)
--- NOTE | 2020-04-29 14:18 | EDM.PDOC ---
ED HPI GENERAL MEDICAL PROBLEM - General Chief Complaint: Laceration Stated Complaint: LT FINGER CUT OFF Time Seen by Provider: 04/29/20 13:39 Source of Information: Reports: Patient History Limitations: Reports: No Limitations - History of Present Illness INITIAL COMMENTS - FREE TEXT/NARRATIVE: HISTORY AND PHYSICAL: History of present illness: Patient is a 60-year-old male who presents to the emergency room with complaints of a distal avulsion/ amputation of his left thumb. He reports he was using a saw when the blade malfunction and cut "off" the distal aspect of the left thumb, currently hanging by skin. He denies any other extremity involvement. He offers no systemic complaints. Unsure of his last tetanus update Review of systems: As per history of present illness and below otherwise all systems reviewed and negative. Past medical history: As per history of present illness and as reviewed below otherwise noncontributory. Surgical history: As per history of present illness and as reviewed below otherwise noncontributory. Social history: See social history for further information Family history: As per history of present illness and as reviewed below otherwise noncontributory. Physical exam: General: Well developed and well nourished 60 year old male. Alert and orientated x 3. Nontoxic in appearance and in no moderate distress from injury. Vital signs are stable and have been reviewed by me. Nursing notes were reviewed. HEENT: Atraumatic, normocephalic, pupils equal and reactive bilaterally, negative for conjunctival pallor or scleral icterus, mucous membranes moist, trachea midline. No drooling or trismus noted. No meningeal signs. No hot potato voice noted. Lungs: Clear to auscultation bilaterally. No wheezes, rales, or rhonchi. Chest nontender. Normal work of breathing, no accessory muscles used. Heart: S1S2, regular rate and rhythm without overt murmur, gallops, or rubs. No JVD. No peripheral edema Abdomen: Soft, nondistended, nontender. Normoactive bowel sounds. Negative for masses or costovertebral tenderness. Skin: Distal avulsion at the DIP joint of the left thumb, no blood flow of the amputated area. No active bleeding. Remaining skin is intact, warm, dry. No lesions or rashes noted. Hematologic: No petechiae or purpra. Mucosa appropriate color and normal nail bed color and refill. Extremities: Amputation of left distal thumb at DIP joint. See SKIN for details. He moves other all extremities per self without difficulty or deficits. Neurovascular unremarkable. Neuro: Awake, alert, oriented. Cranial nerves II through XII unremarkable. Cerebellum unremarkable. Motor and sensory unremarkable throughout. Exam nonfocal. Psychiatric: Mood and affect are appropriate. Normal thought process. Answering questions appropriately. Notes: *This patient was seen and evaluated during the 2019 SARS-CoV-2 novel coronavirus pandemic period. Community viral transmission is ongoing at time of this encounter and the emergency department is operating under pandemic response procedures. Dr Alexandre was involved in this patients care. Patient's thumb is only attached by a superficial piece of skin on the volar aspect of the thumb above the DIP joint. A digital block was performed using sterile and customary procedures. Patient was made aware of removing the piece of skin so the thumb could be placed on ice, he is agreeable and consents. Digital block was successful and a 0.5 cm cut was performed to remove the skin from the distal thumb amputation. The thumb was placed in sterile water and encased sealed bag, and then placed on ice. Patient thumb is not bleeding with mild pressure. Sterile saline gauze with Kerlix was applied to the base of the thumb/open skin area. Patient tolerated well. Pain is managed. Tetanus has been updated. Ancef has been given. X-ray shows a comminuted intra-articular fracture through the widened base distal phalanx of the thumb with incongruity of the articular cortex. No fracture of the proximal phalanx. Small punctate metallic foreign body at the skin margin palmar ulnar margin. Overlying bandage limits assessment of soft tissue and fine osseous detail. 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 1400: Spoke with Dr Saldivar at [facility] in [place]. Due to the amputation of the finger; he suggested calling [place] to find a vascular hand surgeon who would be willing to reattach the thumb. Attempt to get placement for this patient at [facility]. No vascular hand surgeon is available. Referred us to [facility]. Spoke with Dr Ruiz at [facility], he accepted this patient. 1410: Dr Ruiz at [facility] called back and requested that I talk with the patient about expectations of care. He spoke with their orthopedic/trauma surgeon who states they would likely rondure the bone and not be able to reattach the amputated thumb. I did talk with the patient about his expectations and that the amputated piece may not be reattached. The patient states he is fine with that and does not have the expectation of the thumb being fully reattached with full function. I did inform him I could call other facilities to see if there is a vascular surgeon who could give us a more definite answer about reattachment, patient is agreeable but states he prefers to go to [place] (as this is closer and there is not guarantee of reattachment). 1430: [facility] in [place], Spoke with Dr Saldivar and Dr Troncoso - who has accepted this patient. Janna is aware of patient's request and expectations. 1445: [facility]: Dr Snyder, Trauma plastics was consulted on this case. She reports since the amputation is distal above the DIP joint that it would likely not be reattached but they could look at it. They would be happy to accept this patient but again consult with the patient about his expectations of transfer. I did inform the patient that they would happily accept him but again there was no guarantee that the distal thumb would be reattached. We weighed risks versus benefits of all options and patient/ would prefer to go to [facility]. Our ground crew is unavailable due to a recent transfer, will be another 6-8 hours before they may be able to transfer this patient to [facility]. I do not want to delay care for this patient and will therefore fly him. He and his are aware of transfer and are agreeable. Patient remains stable. Dressing intact. Diagnostics: X-ray Therapeutics: Bupivicain, Ancef, Tdap, Morphine Impression: Finger amputation Plan: Transfer to [facility] via flight Definitive disposition and diagnosis as appropriate pending reevaluation and review of above. L thumb Pain Score (Numeric/FACES): 10 - Related Data Allergies Allergy/AdvReac Type Severity Reaction Status Date / Time No Known Allergies Allergy Verified 04/29/20 14:55 Home Meds: Home Meds Lisinopril 10 mg PO DAILY 11/02/13 [History] amLODIPine [Norvasc] 5 mg PO DAILY 10/10/14 [History] FLUoxetine HCl [Fluoxetine] 10 mg PO DAILY 04/14/19 [History] Ibuprofen [Motrin] 600 mg PO Q8H #30 tab 04/14/19 [Rx] Past Medical History Cardiovascular History: Reports: Hypertension Musculoskeletal History: Reports: Fracture - Infectious Disease History Infectious Disease History: Reports: Chicken Pox Social & Family History - Family History Family Medical History: No Pertinent Family History - Caffeine Use Caffeine Use: Reports: Coffee, Soda ED ROS GENERAL - Review of Systems Review Of Systems: Comprehensive ROS is negative, except as noted in HPI. ED EXAM, SKIN/RASH Exam: See Below (See dictation) Course - Vital Signs Last Recorded V/S: Last Vital Signs Temp 98 F 04/29/20 13:50 Pulse 62 04/29/20 14:47 Resp 20 04/29/20 14:47 BP 123/69 04/29/20 14:47 Pulse Ox 100 04/29/20 14:47 - Orders/Labs/Meds Orders: Active Orders 24 hr Category Date Time Status Vaccines to be Administered [RC] PER UNIT ROUTINE Care 04/29/20 15:03 Active Lactated Ringers [Ringers, Lactated] 1,000 ml Med 04/29/20 14:00 Active IV ASDIRECTED Medication Orders Lactated Ringer's (Ringers, Lactated) 1,000 mls @ 125 mls/hr IV ASDIRECTED KIKA Last Admin: 04/29/20 14:26 Dose: 125 mls/hr Documented by: MELE Labs: Laboratory Tests 04/29/20 04/29/20 Range/Units 14:10 14:10 WBC 7.74 (4.0-11.0) K/uL RBC 3.79 L (4.50-5.90) M/uL Hgb 12.7 L (13.0-17.0) g/dL Hct 37.3 L (38.0-50.0) % MCV 98.4 H (80.0-98.0) fL MCH 33.5 H (27.0-32.0) pg MCHC 34.0 (31.0-37.0) g/dL RDW Std Deviation 47.2 (28.0-62.0) fl RDW Coeff of Linda 13 (11.0-15.0) % Plt Count 412 H (150-400) K/uL MPV 8.70 (7.40-12.00) fL Neut % (Auto) 56.0 (48.0-80.0) % Lymph % (Auto) 32.8 (16.0-40.0) % [place] % (Auto) 8.8 (0.0-15.0) % Eos % (Auto) 1.9 (0.0-7.0) % Baso % (Auto) 0.5 (0.0-1.5) % Neut # (Auto) 4.3 (1.4-5.7) K/uL Lymph # (Auto) 2.5 H (0.6-2.4) K/uL [place] # (Auto) 0.7 (0.0-0.8) K/uL Eos # (Auto) 0.2 (0.0-0.7) K/uL Baso # (Auto) 0.0 (0.0-0.1) K/uL Nucleated RBC % 0.0 /100WBC Nucleated RBCs # 0 K/uL Sodium 132 L (136-148) mmol/L Potassium 3.6 (3.5-5.1) mmol/L Chloride 98 (98-107) mmol/L Carbon Dioxide 22.0 (21.0-32.0) mmol/L BUN 15 (7.0-18.0) mg/dL Creatinine 0.9 (0.8-1.3) mg/dL Est Cr Clr Drug Dosing 95.80 mL/min Estimated GFR (MDRD) > 60.0 ml/min Glucose 98 (74-106) mg/dL Calcium 8.8 (8.5-10.1) mg/dL Total Bilirubin 0.3 (0.2-1.0) mg/dL AST 24 (15-37) IU/L ALT 31 (14-63) IU/L Alkaline Phosphatase 62 (46-116) U/L Total Protein 7.2 (6.4-8.2) g/dL Albumin 3.7 (3.4-5.0) g/dL Globulin 3.5 (2.6-4.0) g/dL Albumin/Globulin Ratio 1.1 (0.9-1.6) Meds: Medications Generic Name Dose Route Start Last Admin Trade Name Freq PRN Reason Stop Dose Admin Lactated Ringer's 1,000 mls @ 125 mls/hr 04/29/20 14:00 04/29/20 14:26 Ringers, Lactated IV 125 mls/hr ASDIRECTED KIKA Administration Discontinued Medications Generic Name Dose Route Start Last Admin Trade Name Kimber PRN Reason Stop Dose Admin Bupivacaine HCl 10 ml 04/29/20 14:01 04/29/20 14:31 Sensorcaine-Mpf 0.5% INJECT 04/29/20 14:02 10 ml ONETIME ONE Administration Diphtheria/Tetanus/Acell Pertussis 0.5 ml 04/29/20 15:02 04/29/20 15:10 Boostrix IM 04/29/20 15:03 0.5 ml .ONCE ONE Administration Diphtheria/Tetanus/Acell Pertussis Confirm 04/29/20 15:05 04/29/20 15:13 Boostrix Administered 04/29/20 15:06 Not Given Dose 0.5 ml .ROUTE .STK-MED ONE Cefazolin Sodium/Dextrose 1 gm 50 mls @ 100 mls/hr 04/29/20 14:00 04/29/20 14:27 / Premix IV 04/29/20 14:29 100 mls/hr ONETIME ONE Administration Morphine Sulfate 4 mg 04/29/20 14:08 04/29/20 14:30 Morphine IVPUSH 04/29/20 14:09 4 mg ONETIME ONE Administration Ondansetron HCl 4 mg 04/29/20 14:08 04/29/20 14:30 Zofran IVPUSH 04/29/20 14:09 4 mg ONETIME ONE Administration Departure - Departure Time of Disposition: 17:37 Disposition: DC/Tfer to [facility] 02 Clinical Impression: Amputation, thumb, traumatic Qualifiers: Encounter type: initial encounter Laterality: left Qualified Code(s): S68.012A - Complete traumatic metacarpophalangeal amputation of left thumb, initial encounter - Discharge Information Referrals: Jose De Jesus Jaquez MD [Primary Care Provider] - Forms: ED Department Discharge Critical Care Note - Critical Care Note Total Time (mins): 31 Comments: Critical care time is exclusive of billable procedures and the time to perform these procedures. Critical care time was used to prevent vital system organ failure and deterioration. Critical care time includes bedside management and high-complexity decision making requiring my highest level of mental preparedness and attention. This includes reviewing the patient's chart and prior medical records, ordering and reviewing interpreting laboratory studies and imaging results, interpretation of vital signs and EKG, pulse oximetry, and discussion with the admitting team along with EMS and nursing staff. Patient had amputation of the thumb which required bleeding control and digital block, appropriate dressing, and multiple phone calls for patient to be transferred to the appropriate facility. Vital signs were monitored closely.. Sepsis Event Note (ED) - Focused Exam Vital Signs: Vital Signs Temp Pulse Resp BP Pulse Ox 04/29/20 14:47 62 20 123/69 100 04/29/20 14:42 69 20 114/74 100 04/29/20 14:29 63 121/67 04/29/20 14:27 63 112/74 04/29/20 14:12 62 109/66 04/29/20 13:50 98 F 61 18 94/54 L 97 - My Orders Last 24 Hours: My Active Orders 04/29/20 14:00 Lactated Ringers [Ringers, Lactated] 1,000 ml IV ASDIRECTED 04/29/20 15:03 Vaccines to be Administered [RC] PER UNIT ROUTINE - Assessment/Plan Last 24 Hours: My Active Orders 04/29/20 14:00 Lactated Ringers [Ringers, Lactated] 1,000 ml IV ASDIRECTED 04/29/20 15:03 Vaccines to be Administered [RC] PER UNIT ROUTINE
--- NOTE | 2020-04-29 14:41 | CR ---
INDICATION: Pain after injury. IMPRESSION: Comminuted intra-articular fracture through the widened base distal phalanx of the thumb with incongruity of the articular cortex. No fracture of the proximal phalanx. Small punctate metallic foreign body at the skin margin palmar ulnar margin. Overlying bandage limits assessment of soft tissue and fine osseous detail. 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 Dictated by Aidan Sky MD @ Apr 29 2020 2:37PM Signed by Dr. Aidan Sky @ Apr 29 2020 2:39PM
[2020-04-29 15:01] LABS: BLOOD UREA NITROGEN,BUN 15 mg/dL (7.0-18.0); CHLORIDE,CL 98 mmol/L (98-107); GLUCOSE RANDOM 98 mg/dL (74-106); POTASSIUM,K 3.6 mmol/L (3.5-5.1); SODIUM,NA 132 mmol/L (136-148)
[2020-04-29] MEDS ORDERED: Diphtheria,Pertussis(Acell),Tetanus Vaccine 0.5 ML Syringe IM ONE (15:02)
[2020-04-29 15:04] VITALS: BP 123/69; PULSE 62
[2020-04-29] MEDS ORDERED: Diphtheria,Pertussis(Acell),Tetanus Vaccine 0.5 ML Syringe ONE (15:05)
== END 2020-04-29 16:02 ==
LOC: MW.ED 13:33
DX: S68.522A Partial traumatic transphalangeal amputation of left thumb, initial encounter (principal); I10 Essential (primary) hypertension; Z79.899 Other long term (current) drug therapy; W27.0XXA Contact with workbench tool, initial encounter
CPT/HCPCS: 36415; 64450; 73130; 80053; 85025; 90471; 96365; 96375; 99285; J0690; J2270; J2405; J3490; J7120; 26951; 90715; 99291